=== PATIENT | female | born 1970 | race Caucasian/White ===

== ENCOUNTER 2019-11-02 22:46 | Inpatient (IN) | payer OTHER ==
[~2019-11-02] VITALS: Ht 160 cm; Wt 108.9 kg
[~2019-11-02 22:46] MED LIST: ATEN-171 PO; EZET10TA15 PO; FENO48TA PO; GABA-534 PO; GLIP10TA PO; HYDR12.519 PO; LISI10TA5 PO; METF-442 PO; SIMV20TA2 PO; SITA100T PO
[2019-11-02] MEDS ORDERED: MELO-107 PO (22:58)
[2019-11-02] MEDS ORDERED: CALC1TAB91 PO (22:58)
[2019-11-02] MEDS ORDERED: ERGO500040 PO (22:58)
[2019-11-02] MEDS ORDERED: ATOR20TA27 PO (22:58)
[2019-11-02 23:28] LABS: BASOPHILS # (AUTO) 0.1 K/uL (0.0-8.0); BASOPHILS % (AUTO) 0.6 % (0.0-2.0); EOSINOPHILS # (AUTO) 0.6 K/uL (0.0-0.7); EOSINOPHILS % (AUTO) 4.3 % (0.0-7.0); HEMATOCRIT 32.4 % (31.2-41.9); HEMOGLOBIN 11.1 g/dL (10.9-14.3); LYMPHOCYTES # (AUTO) 3.4 K/uL (20.0-40.0); LYMPHOCYTES % (AUTO) 22.8 % (20.5-51.5); MEAN CORPUSCULAR HEMOGLOBIN 28.3 uug (24.7-32.8); MEAN CORPUSCULAR HGB CONC 34 g/dL (32.3-35.6); MEAN CORPUSCULAR VOLUME 82.4 fL (75.5-95.3); MONOCYTES # (AUTO) 0.8 K/uL (2.0-10.0); MONOCYTES % (AUTO) 5.2 % (0.0-11.0); NEUTROPHILS # (AUTO) 10.1 K/uL (1.8-8.9); NEUTROPHILS % (AUTO) 67.1 % (38.5-71.5); PLATELET COUNT (AUTO) 387 K/uL (179-408); RED BLOOD CELL COUNT(AUTO) 3.93 MIL/uL (3.63-4.92); WHITE BLOOD COUNT (AUTO) 15.1 K/uL (3.8-11.8)
[2019-11-02 23:36] LABS: CREATININE 1.1 mg/dL (0.6-1.3); POTASSIUM 4.1 mmol/L (3.5-5.1)
[2019-11-02 23:53] LABS: BILIRUBIN,DIRECT 0.2 mg/dL (0.0-0.2); BILIRUBIN,TOTAL 0.4 mg/dL (0.2-1.0); TOTAL PROTEIN, SERUM 7.3 g/dL (6.4-8.2)
[2019-11-03] MEDS ORDERED: FUROSEMIDE 40 MG/4 ML VIAL ONE
[2019-11-03] MEDS ORDERED: ASPIRIN 325 MG TABLET PO ONE
[2019-11-03] MEDS ORDERED: ASPIRIN 325 MG TABLET ONE
[2019-11-03] MEDS ORDERED: ENOXAPARIN SODIUM 80 MG/0.8 ML DISP.SYRIN SQ ONE ×2 (00:15)
[2019-11-03] MEDS ORDERED: LORAZEPAM 2 MG/1 ML VIAL IV ONE (00:15)
[2019-11-03] MEDS ORDERED: METOPROLOL TARTRATE 5 MG/5 ML VIAL IVP ONE ×4 (00:15→01:00)
[2019-11-03] MEDS ORDERED: LORAZEPAM 2 MG/1 ML VIAL ONE (00:16)
--- NOTE | 2019-11-03 00:27 | NUR ---
Spoke to Chelly from patients insurance, clinicals given. Awaiting further updates. Per ER MD, patient to be admitted to [facility] ([facility]). Patient is not stable for transfer.
--- NOTE | 2019-11-03 01:06 | NUR ---
Patient in bed, no acute distress at this time. Call placed to [facility] for patient inpatient admission.
[2019-11-03] MEDS ORDERED: IV NS 1000 ML 1,000 ML IV PRN (01:17)
[2019-11-03] MEDS ORDERED: DEXTROSE 50% 50 ML DISP.SYRIN IV PRN (01:30)
[2019-11-03] MEDS ORDERED: DOCUSATE SODIUM 100 MG CAPSULE PO PRN (01:30)
[2019-11-03] MEDS ORDERED: MORPHINE SULFATE 2 MG/1 ML DISP.SYRIN IV PRN (01:30)
[2019-11-03] MEDS ORDERED: NITROGLYCERIN 0.4 MG/TAB BOTTLE SL PRN (01:30)
[2019-11-03] MEDS ORDERED: ONDANSETRON 4 MG/2 ML VIAL IV PRN (01:30)
[2019-11-03] MEDS ORDERED: ACETAMINOPHEN 325 MG TABLET PO PRN (01:30)
[2019-11-03] MEDS ORDERED: MAG HYDROX/AL HYDROX/SIMETH 30 ML LIQUID UDC PO PRN (01:30)
--- NOTE | 2019-11-03 01:42 | NUR ---
Report given to Rusty MICHEL on [facility]
[2019-11-03] MEDS ORDERED: LISINOPRIL 10 MG TABLET PO SCH ×2 (01:45→06:30)
[2019-11-03] MEDS ORDERED: HYDROCHLOROTHIAZIDE 12.5 MG CAPSULE PO SCH ×2 (01:45→06:15)
[2019-11-03 02:15] VITALS: BP 129/92
--- NOTE | 2019-11-03 04:42 | NUR ---
Admitted to [id number]; admission procedures done; placed on tele; VSS; denies any pain; Troponin elevated earlier at 1.9, relayed to LAVONNE CANTU, no new orders; remains SR on tele; continue to monitor; continue plan of care.
[2019-11-03 05:11] LABS: *BILIRUBIN,URIN NEGATIVE (NEGATIVE); *BLOOD, URINE NEGATIVE (NEGATIVE); *CLARITY,URINE CLEAR (CLEAR); *KETONES,URINE NEGATIVE (NEGATIVE); *UROBILINOGEN,URINE 0.2 E.U./dl (NORMAL); LEUKOCYTE ESTERASE ,URINE NEGATIVE (NEGATIVE); NITRITE, URINE NEGATIVE (NEGATIVE); UGLUCOSE NEGATIVE (NEGATIVE)
[2019-11-03 05:13] VITALS: BP 130/88
[2019-11-03 05:20] LABS: *COLOR,URINE STRAW (YELLOW)
[2019-11-03 05:29] LABS: BACTERIA,URINE NONE SEEN /HPF (NONE SEEN); RBC,URINE 0-3 /HPF (0-3); SQUAMOUS EPITHELIAL CELL,UR FEW /HPF (NONE SEEN); WBC,URINE NONE SEEN /HPF (0-3)
[2019-11-03] MEDS: BLOOD SUGAR DIAGNOSTIC 1 EACH STRIP VI SCH ×4 (06:37→20:42)
[2019-11-03 07:30] VITALS: BP 149/95
[2019-11-03 07:33] LABS: BASOPHILS % (AUTO) 0.2 % (0.0-2.0); EOSINOPHILS # (AUTO) 0.7 K/uL (0.0-0.7); HEMATOCRIT 32.9 % (31.2-41.9); HEMOGLOBIN 11.4 g/dL (10.9-14.3); LYMPHOCYTES # (AUTO) 3.8 K/uL (20.0-40.0); LYMPHOCYTES % (AUTO) 28.4 % (20.5-51.5); MEAN CORPUSCULAR HEMOGLOBIN 28.1 uug (24.7-32.8); MEAN CORPUSCULAR HGB CONC 35 g/dL (32.3-35.6); MEAN CORPUSCULAR VOLUME 81.4 fL (75.5-95.3); MONOCYTES # (AUTO) 0.7 K/uL (2.0-10.0); MONOCYTES % (AUTO) 5.5 % (0.0-11.0); NEUTROPHILS # (AUTO) 8.2 K/uL (1.8-8.9); NEUTROPHILS % (AUTO) 60.9 % (38.5-71.5); PLATELET COUNT (AUTO) 359 K/uL (179-408); RED BLOOD CELL COUNT(AUTO) 4.04 MIL/uL (3.63-4.92); WHITE BLOOD COUNT (AUTO) 13.5 K/uL (3.8-11.8)
[2019-11-03 07:41] LABS: POTASSIUM 3.9 mmol/L (3.5-5.1)
[2019-11-03 07:48] LABS: BILIRUBIN,TOTAL 0.5 mg/dL (0.2-1.0); MAGNESIUM 1.3 mg/dL (1.8-2.4); PHOSPHOROUS 4.1 mg/dL (2.5-4.9); TOTAL PROTEIN, SERUM 7.1 g/dL (6.4-8.2)
[2019-11-03] MEDS ORDERED: METFORMIN HCL 500 MG TABLET PO SCH (08:00)
--- NOTE | 2019-11-03 08:00 | NUR ---
awake alert and oriented, ambulatory, denies of chest pain, states has slight shortness of breath on exertion, tele SR 80's, explained plan of care- verbalized understanding, safety measures maintained, call light within reach
[2019-11-03] MEDS ORDERED: IV NORMAL SALINE 0 ML IV ONE (08:42)
[2019-11-03] MEDS ORDERED: SWABABLE VALVE TRANSFER SET EA MC ONE (08:42)
[2019-11-03] MEDS ORDERED: IOHEXOL 350 100 ML INFUS..BTL ONE (08:42)
[2019-11-03] MEDS ORDERED: MELOXICAM 7.5 MG TABLET PO SCH (09:00)
[2019-11-03] MEDS ORDERED: ENOXAPARIN SODIUM 80 MG/0.8 ML DISP.SYRIN SQ SCH ×2 (09:00)
[2019-11-03] MEDS ORDERED: METOPROLOL TARTRATE 50 MG TABLET PO SCH (09:00)
[2019-11-03] MEDS ORDERED: ASPIRIN 325 MG TABLET PO SCH ×2 (09:00)
--- NOTE | 2019-11-03 09:04 | NUR ---
Dr Galo here and saw pt- made aware of troponin 2.403
--- NOTE | 2019-11-03 09:30 | NUR ---
CTA chest not done- pt claustrophobic- Dr Galo informed
[2019-11-03] MEDS: LINAGLIPTIN 5 MG TABLET PO SCH (09:46)
[2019-11-03] MEDS: MAGNESIUM SULFATE/D5W 100 ML IV SCH ×2 (09:46→11:28)
[2019-11-03] MEDS: CALCIUM CARB/VITAMIN D 500MG-200UNITS TABLET PO SCH (09:46)
[2019-11-03] MEDS: ATENOLOL 50 MG TABLET PO SCH (09:48)
[2019-11-03] MEDS: glipiZIDE 5 MG TABLET PO SCH ×2 (09:49→16:58)
[2019-11-03] MEDS ORDERED: ENOXAPARIN SODIUM 100 MG/ML DISP.SYRIN SQ SCH (10:00)
[2019-11-03 11:30] VITALS: BP 129/84
[2019-11-03] MEDS ORDERED: ASPIRIN 81 MG TAB.CHEW PO ONE (11:30)
[2019-11-03] MEDS ORDERED: FUROSEMIDE 40 MG/4 ML VIAL IV ONE ×2 (11:30)
--- NOTE | 2019-11-03 11:45 | NUR ---
Dr Galo called with orders- to be started on heparin
[2019-11-03] MEDS ORDERED: HEPARIN SODIUM,PORCINE 5,000 UNITS/ML VIAL IV ONE ×2 (12:30→20:30)
[2019-11-03] MEDS: INSULIN REGULAR, HUMAN 300 UNIT/3 ML VIAL SQ PRN ×4 (13:14→20:47)
--- NOTE | 2019-11-03 13:15 | NUR ---
heparin 5000 units iv bolus given followed by heparin drip at 1250units/hr as per acs protocol
[2019-11-03] MEDS: HEPARIN/D5W DRIP 500 ML IV PRN ×2 (13:28→20:38)
[2019-11-03 15:30] VITALS: BP 104/62
--- NOTE | 2019-11-03 17:59 | NUR ---
resting in bed, denies of any discomfort, tele SR 84, heparin drip at 1250 units/hr, no bleeding noted, on 2l/nc, all needs attended and met, safety measures maintained, call light within reach
--- NOTE | 2019-11-03 20:30 | NUR ---
[facility] called regarding pt; requesting authorization # and paper works; pt initially agreed to go there but later declined because stated it's far.
[2019-11-03 20:37] VITALS: BP 103/68
[2019-11-03] MEDS: SIMVASTATIN 40 MG TABLET PO SCH ×3 (20:42→21:00)
[2019-11-03] MEDS ORDERED: EZETIMIBE 10 MG TABLET PO SCH (21:00)
[2019-11-03] MEDS ORDERED: GABAPENTIN 300 MG CAPSULE PO SCH (21:00)
[2019-11-03] MEDS ORDERED: SIMVASTATIN 20 MG TABLET PO SCH (21:00)
[2019-11-04] VITALS: BP 124/76
[2019-11-04] MEDS ORDERED: DEXTROSE 50% 50 ML DISP.SYRIN IV PRN (01:30)
[2019-11-04] MEDS ORDERED: INSULIN REGULAR, HUMAN 300 UNIT/3 ML VIAL SQ PRN (01:30)
[2019-11-04 04:00] VITALS: BP 126/69
[2019-11-04] MEDS ORDERED: BLOOD SUGAR DIAGNOSTIC 1 EACH STRIP VI SCH (06:00)
[2019-11-04 07:30] VITALS: BP 129/83
--- NOTE | 2019-11-04 07:34 | NUR ---
pt rested in between care; Npo fr midnight; tolerated heparin drip; no bleeding noted; next PTT at 0830; Dr Galo called and followed up labs; per MD no ivf needed; may stopped heparin en route to [facility]; endorsed to [facility] for continuity of care.
[2019-11-04 07:52] VITALS: BP 129/83
[2019-11-04] MEDS: glipiZIDE 5 MG TABLET PO SCH (07:52)
[2019-11-04] MEDS: ATENOLOL 50 MG TABLET PO SCH (07:52)
[2019-11-04] MEDS: CALCIUM CARB/VITAMIN D 500MG-200UNITS TABLET PO SCH (07:52)
[2019-11-04] MEDS: LINAGLIPTIN 5 MG TABLET PO SCH (07:52)
[2019-11-04 07:58] LABS: BASOPHILS # (AUTO) 0.1 K/uL (0.0-8.0); BASOPHILS % (AUTO) 0.8 % (0.0-2.0); EOSINOPHILS # (AUTO) 0.8 K/uL (0.0-0.7); EOSINOPHILS % (AUTO) 5.3 % (0.0-7.0); HEMATOCRIT 31.1 % (31.2-41.9); HEMOGLOBIN 10.5 g/dL (10.9-14.3); MEAN CORPUSCULAR HEMOGLOBIN 27.9 uug (24.7-32.8); MEAN CORPUSCULAR HGB CONC 34 g/dL (32.3-35.6); MEAN CORPUSCULAR VOLUME 82.7 fL (75.5-95.3); MONOCYTES % (AUTO) 6.8 % (0.0-11.0); NEUTROPHILS # (AUTO) 8.4 K/uL (1.8-8.9); NEUTROPHILS % (AUTO) 59.1 % (38.5-71.5); PLATELET COUNT (AUTO) 363 K/uL (179-408); RED BLOOD CELL COUNT(AUTO) 3.76 MIL/uL (3.63-4.92); WHITE BLOOD COUNT (AUTO) 14.3 K/uL (3.8-11.8)
--- NOTE | 2019-11-04 08:00 | NUR ---
received patient sitting in bed oriented x3, no ss of pain or any distress. npo for heart cath today at [facility]. continue with heparin drip per protocol. no ss of bleeding
[2019-11-04 08:30] LABS: CREATININE 0.9 mg/dL (0.6-1.3); POTASSIUM 4.3 mmol/L (3.5-5.1)
[2019-11-04 08:35] LABS: BILIRUBIN,TOTAL 0.5 mg/dL (0.2-1.0); TOTAL PROTEIN, SERUM 6.9 g/dL (6.4-8.2)
[2019-11-04] MEDS ORDERED: ASPIRIN 81 MG TAB.CHEW PO SCH (09:00)
--- NOTE | 2019-11-04 09:35 | NUR ---
patient transferred [facility]. report given to Nic (ambulance crew), so with manda Magallanes
[2019-11-07] MEDS ORDERED: ERGOCALCIFEROL 50,000 UNIT CAPSULE PO SCH (09:00)
== END 2019-11-04 09:48 | disposition short-term general hospital (02) | DRG 190 ==
LOC: ER 22:48 → TELE-TD3 11-03 01:32
PROVIDERS: ADMIT Internal Medicine; ATTEND Nurse Practitioner Acute Care
DX: I21.4 Non-ST elevation (NSTEMI) myocardial infarction (principal); I50.43 Acute on chronic combined systolic (congestive) and diastolic (congestive) heart failure; E11.65 Type 2 diabetes mellitus with hyperglycemia; E66.01 Morbid (severe) obesity due to excess calories; I11.0 Hypertensive heart disease with heart failure; Z68.41 Body mass index [BMI] 40.0-44.9, adult; E78.5 Hyperlipidemia, unspecified; Z85.41 Personal history of malignant neoplasm of cervix uteri; Z90.710 Acquired absence of both cervix and uterus; K21.9 Gastro-esophageal reflux disease without esophagitis; M19.90 Unspecified osteoarthritis, unspecified site; Z79.84 Long term (current) use of oral hypoglycemic drugs
CPT/HCPCS: 36415; 70030-TC; 71045; 83735; 84100; 84443; 85025; 85730; 93005; 93307; A4663; G0378; J1644; J1650; J1815; J1940; J2060; J3475; J3490; J7030; J7050; Q9967; U0003-CS

== ENCOUNTER 2021-05-17 16:31 | Emergency (ER) | payer OTHER ==
[~2021-05-17] VITALS: Ht 162.6 cm; Wt 90.7 kg
[~2021-05-17 16:31] MED LIST changes: +ATOR20TA27 PO; +CALC1TAB91 PO; +ERGO500040 PO; -FENO48TA PO; -GLIP10TA PO; +LISI10TA29 PO; -LISI10TA5 PO; +MELO-107 PO; -SIMV20TA2 PO
--- NOTE | 2021-05-17 17:35 | NUR ---
PT WAS EVALUATED BY DR PALOMINO. PT WAS D/C'd TO HOME. D/C INSTRUC TIONS GIVEN TO THE PT BY DR PALOMINO.
[2021-05-17 17:37] VITALS: BP 139/95
== END 2021-05-17 17:38 | disposition home or self-care (01) ==
LOC: ER 16:33
DX: U07.1 COVID-19 (principal); J20.8 Acute bronchitis due to other specified organisms; K21.9 Gastro-esophageal reflux disease without esophagitis; I10 Essential (primary) hypertension; E78.5 Hyperlipidemia, unspecified; Z85.41 Personal history of malignant neoplasm of cervix uteri; E11.9 Type 2 diabetes mellitus without complications; Z79.84 Long term (current) use of oral hypoglycemic drugs; Z79.899 Other long term (current) drug therapy
CPT/HCPCS: A4663